=== PATIENT | female | born 1990 | race African-American/Black ===

== ENCOUNTER 2019-10-26 10:01 | Emergency (ER) | payer SELFPAY ==
[2019-10-26 10:03] VITALS: BP 155/89; PULSE 94; RESP 17; TEMP 37.4; O2SAT 97; BMI 26.2
--- NOTE | 2019-10-26 10:34 | ED.VIS.DENTA ---
History of Present Illness Chief Complaint: Dental Narrative: Patient presenting for evaluation secondary to dental pain. Patient reports that about 2 weeks ago she suffered a broken filling. She reports a progressively she has been having some increasing pain in her left lower mandible. Patient reports that now she is having pain and swelling going down her neck as well as some swollen lymph nodes and a fever yesterday. No pain with swallowing, no shortness of breath. Patient reports that [facility] and they told her to come to the emergency department. She has been taking Aleve and Tylenol and swishing with salt water with minimal relief. Past Medical History - Allergies and Home Meds Allergies/Adverse Reactions: Allergies No Known Allergies Allergy (Verified 10/26/19 10:01) Primary Care Physician: Jamal Horner DO [Primary Care Provider] - Past Medical History: None Smoking Status: Current every day smoker Review of Systems General: Reports: Fever Eyes: Denies: Visual changes - bilaterally, Diplopia ENT: Reports: - - Dental pain Cardiovascular: Denies: Chest pain, Palpitations Respiratory: Denies: Dyspnea, Cough, Dyspnea on exertion Gastrointestinal: Denies: Abdominal pain, Nausea, Vomiting, Diarrhea, Melena, Hematochezia Genitourinary: Denies: Dysuria, Hematuria, Frequency Musculoskeletal: Denies: Back pain, Extremity Pain Skin: Denies: Rash, Wounds Neurological: Denies: Headache, Weakness, Numbness Physical Exam Vital Signs/Narrative: Vital Signs Temp Pulse Resp BP Pulse Ox 10/26/19 10:03 99.3 F H 94 17 155/89 H 97 Inital Vital Signs reviewed: Yes General: Well nourished, Well developed Head: Normocephalic, Atraumatic ENT: Moist mucous membranes, No rhinorrhea, TM's clear Mouth/Throat: Normal inspection lips/gums, Normal oral mucosa, - - Patient does have evidence of lost fillings in her left mandibular molars and focal temperature noticed to percussion of the second molar. No evidence of focal abscesses. No trismus. Soft sublingual space. Neck: Supple, No JVD, - - Minimal tender left anterior cervical lymphadenopathy Cardiovascular: Regular rate, Regular rhythm, No murmurs Respiratory: No distress, CTA bilaterally, Chest nontender Abdomen: Soft, Nontender, Nondistended, Normal bowel sounds Back: Nontender, Normal Inspection Extremities: Nontender, No edema Skin: Normal color, No rash Neurological: Alert, Oriented x3, Cranial nerves II-XII grossly intact, Normal Strength, Normal Sensation Psychological: Normal affect Diagnostic/Tx/Re-eval - Medical Decision Making Patient presented with dental pain, and a likely dental infection. She has some lymphadenopathy as well as was complaining of fevers. Patient be treated with a course of penicillin and Naprosyn. She is instructed to follow-up with a dentist as soon as possible. ED Disposition - Plan for ED Patient: Disposition: Home or Assisted Living Diagnosis: Acute pulpitis Instructions: Dental Pain Prescriptions: Penicillin V Potassium 500 mg PO 4X/DAY #40 tab Prescription Printed Ketorolac [Toradol] 10 mg PO Q6H PRN #20 tab PRN Reason: Pain Or Fever Prescription Printed Referrals: Jamal Horner DO [Primary Care Provider] - As Needed Additional Instructions: Follow-up with a dentist as soon as possible
[2019-10-26 10:49] VITALS: RESP 16
== END 2019-10-26 11:03 | disposition home or self-care (01) ==
PROVIDERS: Emergency Provider Emergency Medicine; PCP Family Medicine
DX: K04.01 Reversible pulpitis (principal); F17.200 Nicotine dependence, unspecified, uncomplicated
CPT/HCPCS: 99282

== ENCOUNTER 2024-10-15 07:10 | Emergency (ER) | payer SELFPAY ==
[2024-10-15 07:11] VITALS: BP 160/102; PULSE 95; RESP 16; TEMP 37.1; O2SAT 100; BMI 22.3
--- NOTE | 2024-10-15 07:21 | CT_ITS ---
STUDY: CT ABDOMEN AND PELVIS WITHOUT CONTRAST REASON FOR EXAM: Female, 34 years old. Left flank pain with nausea. RADIATION DOSAGE (If Supplied By Facility): CTDIvol = ( 6.04 ) mGy, DLP = ( 273.31 ) mGycm TECHNIQUE: Transaxial images were obtained from the dome of the diaphragm to the symphysis pubis without oral contrast, and without intravenous contrast. Sagittal and coronal images were reconstructed. Individualized dose optimization techniques were used for this CT. COMPARISON: Comparison is made with prior study of May 10, 2016. FINDINGS: The visualized lung bases are unremarkable. The visualized portions of the heart are within normal limits. Normal liver. Normal gallbladder and extrahepatic biliary system. Normal spleen. Normal pancreas. Normal bilateral adrenal glands. Normal right kidney. There is engorgement of the left kidney. Mild degree of left hydronephrosis . I suspect a tiny calculus at the left ureterovesical junction. Normal visualized stomach. Normal small intestine. Normal colon. The appendix is visualized and appears normal. Normal abdominal aorta. Normal inferior vena cava. Normal retroperitoneum. Normal urinary bladder. Normal abdominal wall. Normal osseous structures. CT/Abdomen/Pelvis without Cont IMPRESSION: Mild degree of left hydronephrosis most likely secondary to a tiny calculus at the left ureterovesical junction. Electronically Signed: Yonatan Alcantar MD at 9:01 EST ,
--- NOTE | 2024-10-15 07:22 | ED.VIS.FEGU ---
HPI HPI - Female History of Present Illness Chief Complaint: Flank Pain Detail of Chief Complaint: Left flank pain for 2 days. Informant: patient Associated Symptoms Associated Symptoms: Positive for Dysuria Narrative Narrative: 34-year-old female no seen past medical history. No prior abdominal or urologic surgeries. States that she has had left flank pain for about 2 days. Has gotten worse. Mild dysuria. She has been drinking cranberry juice and taking cranberry pills without any significant relief. She has no history of kidney stones. No history of fever. She has been nauseated and had some mild diarrhea. No vomiting. Does not believe she is . Denies any vaginal bleeding or discharge. She has had no abdominal or back trauma. Prior similar symptoms: No Recent Illness/Hospitalization: No PFSH PFSH Medical History Arthritis Home Medications ?Medication ?Instructions ?Recorded ?Last Taken ?Type alprazolam 0.25 mg tablet (Xanax) 0.25 mg PO BID PRN Anxiety 05/05/18 Unknown History aripiprazole 2 mg tablet 1 mg PO DAILY 05/05/18 Unknown History ketorolac 10 mg tablet 10 mg PO Q6H PRN Pain Or Fever #20 10/26/19 Unknown Rx tabs penicillin V potassium 500 mg 500 mg PO 4X/DAY #40 tabs 10/26/19 Unknown Rx tablet hydrocodone-acetaminophen 5-325mg 1 tab PO Q4H PRN PRN Pain 2 days 10/15/24 Unknown Rx 5mg-325mg #10 TABLETS Allergy/AdvReac Type Severity Reaction Status Date / Time No Known Allergies Allergy Verified 10/15/24 07:11 Social History Smoking Status: Current every day smoker tobacco type: cigarettes alcohol intake: never ROS ROS ED ROS Narrative Left flank pain. Nausea without vomiting. Loose stools. Constitutional Constitutional ED: Denies chills or fever(s) Eyes Eyes: Denies blurry vision ENT ENT ED: Denies ear pain Cardiovascular Cardiovascular: Denies chest pain Respiratory/Chest Respiratory/Chest: Denies cough or dyspnea Gastrointestinal Gastrointestinal: Reports abdominal pain, diarrhea and nausea; Denies constipation, melena or vomiting Genitourinary Genitourinary ED: Reports dysuria; Denies hematuria Musculoskeletal Musculoskeletal: Denies arthralgias or myalgias Integumentary Denies abscess Neurologic Neurologic: Denies headache(s) Psychiatric Psychiatric: Denies anxiety Endocrine Endocrinology: Denies heat intolerance Hematologic/Lymphatic Hematologic/Lymphatic: Denies easy bleeding Allergic/Immunologic Allergic/Immunologic ED: Denies mouth swelling EXAM Physical Exam Narrative Exam Narrative: Well-appearing 34-year-old female. Holding her left flank complaint discomfort. Vital signs are stable. She is afebrile. She does not look septic or toxic. H EENT exam moist mucous membranes. Neck nontender no lymphadenopathy. Lungs clear to auscultation. Heart regular rhythm no murmur rate about 90. Chest wall ribs nontender. Abdomen soft nontender. No peritoneal signs. There is no signs of trauma. There is no rash to her left flank. There is no reproducible left flank pain. Back she does have reproducible pain in her left flank. There is no ecchymosis bruising or rash. Spine and right flank are nontender. Moving all 4 extremities. Nontender no edema. She is standing. Neurologically she is awake and alert with no focal motor deficits. Const Vital Signs: 10/15/24 07:11 10/15/24 09:19 Temperature 98.7 F 97.5 F L Temperature Source Oral Oral Pulse Rate 95 72 Respiratory Rate 16 15 Blood Pressure 160/102 H 124/69 H Blood Pressure Mean 121 87 Pulse Ox 100 98 Oxygen Delivery Method Room Air Room Air Positive well nourished and well developed; Negative for obese, cachectic, contractures or unkempt General Appearance ED: well developed and NAD; Negative for unkempt, cachectic, contractures or pallor Nutritional Appearance: Negative for cachectic or obese HEENT Reports moist mucous membranes Negative for trauma or tenderness Eyes PERRL and EOMs intact bilaterally General Eye ED: Negative for pale conjunctiva Neck no lymphadenopathy, supple and no JVD Chest Wall inspection of chest normal and palpation of chest normal Resp normal respiratory effort and clear to auscultation bilaterally Effort and Inspection: Negative for pain with movement Auscultation: Negative for rales, rhonchi, wheezes or diminished lung sounds Cardio regular rate, regular rhythm, S1 normal heart sound, no murmurs and no JVD Rate: Negative for bradycardia or tachycardic Rhythm: Negative for abnormal rhythm GI normal to inspection, nondistended, normoactive bowel sounds, soft to palpation, non-tender, non-distended and no masses Auscultation: normoactive bowel sounds Palpation: Negative for tender, guarding, rigid or mass Back/Spine Negative for no CVA tenderness Back/Spine Narrative: Reproducible left flank pain. No rash. No bruising or signs of trauma. No discoloration. General Back: Negative for CVA tenderness Cervical Spine: Negative for cervical spine tenderness Thoracic Spine / Upper Back: Negative for thoracic spinal tenderness Lumbar Spine / Lower Back: Negative for lumbar spinal tenderness Extremity normal to inspection and full ROM General Extremety ED: Negative for edema or tenderness General Extremity: Negative for edema Neuro oriented x3 and CN's II-XII intact bilaterally Sensorium / Orientation: alert, oriented to person, oriented to place and oriented to time; Negative for confused, lethargic or stuporous Motor Exam: strength 5/5 throughout Psych mental status grossly normal Appearance: Negative for unkempt Attitude: No agitated Speech: No other Mood & Affect: Negative for depressed Skin no rashes or lesions noted and no wounds General Skin Exam: Negative for jaundice or pallor Rashes: No rashes noted MDM MDM MDM Narrative Medical decision making narrative: 34-year-old female left flank pain for 2 days. Differential would include kidney stone versus UTI versus musculoskeletal versus other etiologies. CAT scan being obtained. Screening labs. Urinalysis. Serum test. Should be treated with morphine for pain and Zofran for nausea. Repeat exam at 9:31 AM patient is doing better. Still having some pain show given a dose of Toradol. We discussed her test results suspected small left-sided kidney stone. Outpatient follow-up as needed. Motrin and [place] for pain. She was instructed to return if intractable pain, intractable vomiting or fever. She is comfortable with the plan. History & Record Review Discussion w/independent historian: Patient Additional record(s) reviewed:: Prior inpatient record, Prior outpatient record, Prior ED visit and Prior labs Lab Data Attestation: I reviewed the patient's lab results. Lab results narrative: CBC shows a white count 11.3. H&H 13.4 and 41. Platelets 338. UA shows positive nitrites. No white or red cells. No bacteria. Culture will be sent. Chemistries unremarkable. Creatinine 0.1. negative. Normal gap of 7. Glucose 106. Labs: Laboratory Results - last 24 hr 01/16/25 01/16/25 07:32 07:36 WBC 11.3 H RBC 4.41 Hgb 13.4 Hct 41.1 MCV 93.2 MCH 30.4 MCHC 32.6 RDW Std Deviation 43.8 RDW Coeff of Eveline 12.8 Plt Count 338 MPV 9.3 Immature Gran % (Auto) 0.400 Neut % (Auto) 76.9 H Lymph % (Auto) 15.0 L [place] % (Auto) 5.7 Eos % (Auto) 1.6 Baso % (Auto) 0.4 Absolute Neuts (auto) 8.7 H Absolute Lymphs (auto) 1.70 Nucleated RBC % 0 Sodium 137 Potassium 3.7 Chloride 102 Carbon Dioxide 29.0 Anion Gap 7 BUN 14 Creatinine 1.05 H Estim Creat Clear Calc 67.93 Est GFR (MDRD) Af Amer 77 Est GFR (MDRD) Non-Af 64 BUN/Creatinine Ratio 13.3 Glucose 106 Calcium 9.3 Serum , Qual NEGATIVE Urine Color Yellow Urine Clarity Clear Urine pH 6.0 Ur Specific [place] 1.015 Urine Protein 15 H Urine Glucose (UA) Normal Urine Ketones Negative Urine Occult Blood Negative Urine Nitrite Positive H Urine Bilirubin 3 H Urine Urobilinogen 4 H Ur Leukocyte Esterase 25 H Urine RBC 0 SEEN Urine WBC 0-5 SEEN Ur Squamous Epith Cells 0-5 SEEN Urine Bacteria 0 SEEN Urine Mucus 0 SEEN Radiography Diagnostic Testing: Clinical Impression(s) from Imaging Studies Abdomen/Pelvis CT 10/15/24 07:21 IMPRESSION: Mild degree of left hydronephrosis most likely secondary to a tiny calculus at the left ureterovesical junction. Electronically Signed: Yonatan Alcantar MD at 9:01 EST , Discharge Plan Triage Chief Complaint: Flank Pain ED Provider: Art Kumar Dx/Rx/DC Orders Clinical Impression: Left flank pain, Kidney stone on left side Instructions: ED Kidney Stone with Pain Prescriptions: New hydrocodone-acetaminophen 5-325 mg tablet 1 tab PO Q4H PRN PRN (Reason: Pain) 2 Days Qty: 10 0RF No Action alprazolam [Xanax] 0.25 mg tablet 0.25 mg PO BID PRN (Reason: Anxiety) aripiprazole 2 mg tablet 1 mg PO DAILY penicillin V potassium 500 MG tablet 500 mg PO 4X/DAY Qty: 40 0RF ketorolac 10 MG tablet 10 mg PO Q6H PRN (Reason: Pain Or Fever) Qty: 20 0RF Primary Care Provider: Jamal Horner Referrals: Jamal Horner, [Primary Care Provider] - As Needed Americo Oropeza MD [Med Staff - Active Staff] - 3-5 Days if not improving Activity Restrictions/Additional Instructions: You have a small kidney stone on the left that should pass without any problem. [place] for severe pain otherwise you can use Motrin and Tylenol. Plenty of fluids. Strain your urine to look for a small stone. Return if worsening pain you cannot control, intractable vomiting or fever. Print Language: [place] Disposition Disposition: Home, Self Care
[2024-10-15 07:41] LABS: Bacteria 0 SEEN /hpf (None Seen); Mucous, Urine 0 SEEN /hpf (<or=2+); Red Blood Cells-Urine 0 SEEN /hpf (0-5)
[2024-10-15] MEDS: morphine 8 MG/ML Syringe 6 MG IV (07:44)
[2024-10-15] MEDS: Ondansetron 4 MG/2 ML Vial IV (07:44)
[2024-10-15 07:46] LABS: Color, Urine Yellow (Yellow); Glucose, Dipstick Normal (Normal); Ketone-Dipstick Negative (Negative); Leukocyte Esterase-Dipstick 25 /ul (Negative); Nitrite-Dipstick Positive (Negative); Occult Blood-Urine Negative /ul (Negative); Protein-Dipstick 15 mg/dl (Negative); Specific Gravity, Urine 1.015 (1.002-1.030); Urine Clarity Clear (Clear); Urine Urobilinogen 4 mg/dl (Normal)
[2024-10-15 07:47] LABS: Absolute Neutrophil Count 8.7 X10^3/uL (2.0-7.7); Basophil# 0.05 X10^3/uL; Basophil% 0.4 % (0-1); Eosinophil# 0.18 X10^3/uL; Eosinophils% 1.6 % (0-5); Hematocrit 41.1 % (37-47); Hemoglobin 13.4 g/dL (12.0-15.0); Mean Corp Hgb Conc 32.6 g/dL (32-36); Mean Corpuscular Hgb 30.4 pg (27.0-32.0); Mean Corpuscular Volume 93.2 fL (81-99); Mean Platelet Vol. 9.3 fl (6.2-12.0); Monocyte# 0.65 X10^3/uL; Monocyte% 5.7 % (0-10); NRBC Flagged by Analyzer 0 % (0-5); Neutrophil # 8.68 X10^3/uL (2.7-7.7); Neutrophil % 76.9 % (47-70); Platelet Count 338 K/mm3 (150-450); RBC Distribution Width CV 12.8 % (11.6-14.6); RBC Distribution Width SD 43.8 fl (35.1-43.9); Red Blood Count 4.41 M/mm3 (4.2-5.4); White Blood Count 11.3 K/mm3 (4.4-11.0)
[2024-10-15 07:53] LABS: Urine Bilirubin Dipstick 3 mg/dL (Negative)
[2024-10-15 07:54] LABS: Squamous Epithelial Cells - UA 0-5 SEEN /hpf (5-10); White Blood Cells 0-5 SEEN /hpf (0-5)
[2024-10-15 08:00] LABS: Internal QC Validated? YES +Cl - CLEAR BKGD; Pregnancy, Serum, hCG Quali. NEGATIVE Negative
[2024-10-15 08:17] LABS: Anion Gap 7 (5-15); BUN 14 mg/dL (7-18); BUN/Creat Ratio 13.3 RATIO (10-20); Calcium,Total 9.3 mg/dL (8.5-10.1); Chloride 102 mmol/L (98-107); Creatinine, Serum 1.05 mg/dL (0.55-1.02); EST Glomerular Filtration Rate 64 mL/min (>60); Est Glom Filt Rate - Afr Amer 77 mL/min (>60); Estimated Creatinine Clearance 67.93 ml/min; Glucose 106 mg/dL (74-106); Potassium 3.7 mmol/L (3.5-5.1); Sodium Level 137 mmol/L (136-145)
[2024-10-15 09:19] VITALS: BP 124/69; PULSE 72; RESP 15; TEMP 36.4; O2SAT 98
[2024-10-15] MEDS: Ketorolac 30 MG/ML Syringe IV (09:41)
[2024-10-15 09:46] VITALS: BP 140/76; PULSE 82; RESP 15; TEMP 36.3; O2SAT 99
== END 2024-10-15 09:47 | disposition home or self-care (01) ==
PROVIDERS: Emergency Provider Emergency Medicine; PCP Family Medicine; Visit Provider Emergency Medicine
DX: N20.0 Calculus of kidney (principal); R10.9 Unspecified abdominal pain; F17.210 Nicotine dependence, cigarettes, uncomplicated
CPT/HCPCS: 74176; 80048; 81001; 84703; 85025; 87086; 96374; 96375; 99283; A4216; J2405